=== PATIENT | female | born 1945 | race Caucasian/White ===

== ENCOUNTER 2019-03-01 00:52 | Inpatient (IN) | payer OTHER ==
[~2019-03-01] VITALS: Ht 170.1 cm; Wt 115.0 kg
[2019-03-01] VITALS (11 sets, daily range): BP systolic 109–135; BP diastolic 38–89
--- NOTE | 2019-03-01 01:26 | NUR ---
SPOKE WITH WHO STATES THE PATIENT DOES SEEM CONFUSED TO HIM AND STATES SHE HAS NOT BEEN EATING. FREDY MARY RN.
--- NOTE | 2019-03-01 01:32 | NUR ---
STATES THE PATIENT WAS AT HOME AND APPROX AROUND THE ORFebruary THE PATIENT FELL AT HOME HITTING HER HEAD. STATES SHE WAS TAKEN TO [facility] AND DISCHARGED HOME FOLLOWED WITH DR NIELSON ON 02/22/19 AND SENT TO [facility] AND DISCHARGED FROM THERE TO [facility] 02/25/19. FREDY RODRIGUEZ RN.
[2019-03-01 01:56] LABS: BASO # 0.1 10*3/uL (0.0-0.1); BASO % 0.5 % (0.0-1.0); EOS # 0.3 10*3/uL (0.0-0.4); EOS % 2.8 % (1.0-4.0); HEMATOCRIT 40.9 % (37.0-47.0); HEMOGLOBIN 13.6 g/dl (12.0-16.0); LYMPH # 1.7 10*3/uL (1.3-4.4); LYMPH % 15.9 % (27.0-41.0); MEAN CELL VOLUME 96.5 fl (81.0-99.0); MEAN CORPUSCULAR HGB 32.1 pg (27.0-31.0); MEAN CORPUSCULAR HGB CONC 33.3 g/dl (33.0-37.0); MEAN PLATELET VOLUME 10.4 fl (9.6-12.3); NEUT # 7.4 10*3/uL (2.3-7.9); NEUT % 70.3 % (47.0-73.0); PLATELET COUNT AUTOMATED 230 10*3/uL (130-400); RED BLOOD COUNT 4.24 10*6/uL (4.10-5.10); RED CELL DISTRI WIDTH 12.8 % (0-14.5); WHITE BLOOD COUNT 10.5 10*3/uL (4.8-10.8)
[2019-03-01 02:14] LABS: ALBUMIN 3.4 gm/dl (3.1-4.5); ALKALINE PHOSPHATASE 81 U/L (45-117); BUN 36 mg/dl (7-24); CHLORIDE 106 mmol/L (98-107); CREATININE 0.95 mg/dL (0.55-1.02); POTASSIUM 3.2 mmol/L (3.5-5.1); SGOT/AST 31 IU/L (3-35); SGPT/ALT 28 U/L (12-78); SODIUM 143 mmol/L (136-145)
[2019-03-01 02:27] LABS: TROPONIN I 0.143 ng/ml (<0.045)
--- NOTE | 2019-03-01 04:06 | NUR ---
NO CHANGE OIN MENTATION AFTER TYHE GLUCOSE. FREDY MARY RN.
[2019-03-01 04:51] LABS: BILIRUBIN 1+ (NEGATIVE); BLOOD NEGATIVE (NEGATIVE); CLARITY CLEAR (CLEAR); COLOR YELLOW (YELLOW); GLUCOSE TRACE (NEGATIVE); KETONE TRACE (NEGATIVE); LEUKO ESTERASE NEGATIVE (NEGATIVE); NITRITE NEGATIVE (NEGATIVE); PH 5.5 (5.0-9.0); SPECIFIC GRAVITY >= 1.030 (1.005-1.030)
[2019-03-01] MEDS ORDERED: 'XANAX0.5 MG PO (04:54)
[2019-03-01] MEDS ORDERED: HUMULIN N100 UNIT/1 SQ ×2 (04:55→05:07)
[2019-03-01] MEDS ORDERED: EFFEXOR XR75 MG PO (04:56)
[2019-03-01] MEDS ORDERED: METOPROLOL SUCC50 M1 PO (04:57)
[2019-03-01] MEDS ORDERED: ASPIRIN EC650 MG PO (04:58)
[2019-03-01 05:00] LABS: BACTERIA TRACE; MUCOUS 2+
[2019-03-01] MEDS ORDERED: FERROUSAL325 MG PO (05:00)
[2019-03-01] MEDS ORDERED: ZESTORETIC 10-1 EACH PO (05:01)
[2019-03-01] MEDS ORDERED: NEURONTIN300 MG PO (05:02)
[2019-03-01] MEDS ORDERED: OMEPRAZOLE40 MG PO (05:04)
[2019-03-01] MEDS ORDERED: VITAMIN D31000 UNI1 PO (05:04)
[2019-03-01] MEDS ORDERED: VITAMIN B-12100 MCG PO (05:05)
[2019-03-01] MEDS ORDERED: ORPHENADRINE C100 M1 PO (05:06)
[2019-03-01] MEDS ORDERED: VENT7GM INH (05:08)
--- NOTE | 2019-03-01 06:45 | NUR ---
AT THIS TIME THE PATIENT IS AWAKE ALERT TO PERSON PLACE AND TIME TALKING WITH HER .FREDY MARY RN.
--- NOTE | 2019-03-01 08:12 | NUR ---
DR FALL'S OFFICE NOTIFIED OF CONSULT.
[2019-03-01] MEDS ORDERED: ASPIR LOW81 MG PO (10:04)
--- NOTE | 2019-03-01 10:38 | NUR ---
[facility], [facility] to , under the services of LUIZA Crawford DO with a diagnosis of CHANGE IN MENTAL STATUS. Chief complaint is BACK PAIN. Patient arrived via bed from ER. Monitor applied. Initial assessment completed. Vital signs taken and recorded. LUIZA CRAWFORD DO notified of admission to the unit. Orders received. See assessment for past medical history, medications and allergies. Patient and/or family oriented to unit. [facility]. Clothing/patient valuable form completed. CRISTAL RIZZO
--- NOTE | 2019-03-01 14:14 | NUR ---
DR. ARAUJO NOTIFIED OF CONSULT.
--- NOTE | 2019-03-01 15:54 | NUR ---
Nursing screen received as well as occupational therapy orders. Will follow up with patient. Thank you. Nunu Lopez, OTR/L
--- NOTE | 2019-03-01 21:36 | NUR ---
NORCO GIVEN PER ORDER FOR PAIN LEFT LEG AND ATIVAN GIVEN FOR ANXIETY. SEE MAR.
[2019-03-02] VITALS: BP 144/50
--- NOTE | 2019-03-02 01:59 | NUR ---
24 HR chart check completed.
[2019-03-02 06:27] LABS: BASO # 0.1 10*3/uL (0.0-0.1); EOS # 0.3 10*3/uL (0.0-0.4); EOS % 4.7 % (1.0-4.0); HEMATOCRIT 40.8 % (37.0-47.0); HEMOGLOBIN 13.3 g/dl (12.0-16.0); LYMPH # 1.1 10*3/uL (1.3-4.4); LYMPH % 15.5 % (27.0-41.0); MEAN CELL VOLUME 98.6 fl (81.0-99.0); MEAN CORPUSCULAR HGB 32.1 pg (27.0-31.0); MEAN CORPUSCULAR HGB CONC 32.6 g/dl (33.0-37.0); MEAN PLATELET VOLUME 10.7 fl (9.6-12.3); MONO # 0.8 10*3/uL (0.1-1.0); MONO % 11.1 % (3.0-9.0); NEUT # 4.8 10*3/uL (2.3-7.9); NEUT % 66.9 % (47.0-73.0); PLATELET COUNT AUTOMATED 195 10*3/uL (130-400); RED BLOOD COUNT 4.14 10*6/uL (4.10-5.10); RED CELL DISTRI WIDTH 12.9 % (0-14.5); WHITE BLOOD COUNT 7.2 10*3/uL (4.8-10.8)
[2019-03-02 07:13] LABS: CHLORIDE 104 mmol/L (98-107); POTASSIUM 3.9 mmol/L (3.5-5.1); SODIUM 142 mmol/L (136-145)
[2019-03-02 07:40] LABS: ALBUMIN 3.3 gm/dl (3.1-4.5); ALKALINE PHOSPHATASE 86 U/L (45-117); BUN 31 mg/dl (7-24); CHOLESTEROL 176 mg/dL (<200); FREE T4 1.11 ng/dl (0.76-1.46); HDL CHOLESTEROL 37 mg/dl (40-60); LDL CHOLESTEROL 115 mg/dL (9-159); SGOT/AST 17 IU/L (3-35); SGPT/ALT 24 U/L (12-78); TOTAL PROTEIN 6.8 gm/dL (6.4-8.2); TRIGLYCERIDES 118 mg/dl (<150); VLDL CHOLESTEROL 24 mg/dL (6-40)
[2019-03-02 07:45] VITALS: BP 138/72
--- NOTE | 2019-03-02 07:45 | NUR ---
PT LAYING IN BED, WAITING TO GO FOR STRESS TEST. NPO. PT COMPLAINED OF LOWER BACK PAIN, RATE 8/10 SHARP. DENIED MEDICATION. REPOSITIONED FOR COMFORT. MAC LANE SPRAJEEVCC
--- NOTE | 2019-03-02 08:15 | NUR ---
PHYSICAL THERAPY Screen and PT eval received will follow Betzy Colin PT
[2019-03-02 08:36] LABS: VITAMIN D, 25-HYDROXY 54.3 ng/mL (30-100)
--- NOTE | 2019-03-02 08:42 | NUR ---
TORITO ROSAS [id number] Please refer to the physician's history and physical for past medical history, comorbid conditions, and allergies. Diagnosis: ENCEPHALOPATHY ACUTE, ELEVATED TROPONIN Jose Score: 17,AT RISK WOUND DESCRIPTIONS: Wound Number: 1 Location of the wound: right proximal elbow Type of wound: scab Thickness: Partial Size: 0.5cm x 1.0cm x <0.1cm Tunneling: none Undermining: none Sinus Tract: none Presence of Exudate: none Amount: None Color: Brown, Red Odor: None Periwound Skin Appearance: Normal Wound edges: approximated Pain (associated with wound): none at time of assessment How does patient state this happened? pt stated this happened prior to coming in Wound Number: 2 Location of the wound: right distal elbow Type of wound: scab Thickness: Partial Size: 0.5cm x 2.0cm x <0.1cm Tunneling: none Undermining: none Sinus Tract: none Presence of Exudate: none Amount: None Color: Brown, Red Odor: None Periwound Skin Appearance: Normal Wound edges: approximated Pain (associated with wound): none at time of assessment How does patient state this happened? pt stated this happened prior to coming in Surface the patient is resting on: Isoflex SKIN PREVENTION RECOMMENDATION: 1. Pressure redistribution support surface as appropriate 2. Elevate heels 3. Remove boots/TEDS every shift and reapply 4. Head of bed 30 degrees as tolerated 5. Assess nutrition and hydration 6. Manage moisture 7. Avoid the use of containment devices while in bed 8. Use absorptive products on surfaces limit layers of linens on bed 9. Turn and reposition every 1-2 hours in bed and every 1 hour in chair as tolerated 10. Weight shifts every 15 minutes while up in chair 11. Offloading with pillows or device to keep heels elevated off bed 12. Monitor skin at least every shift 13. Inspect under medical devices twice a day WOUND TREATMENT RECOMMENDATIONS: Alma Rosa betancourt guidelines: cleanse right proximal elbow, right distal elbow with nss and apply sureprep around the wound therahoney to wound bed and cover with optifoam gentle.
--- NOTE | 2019-03-02 08:46 | NUR ---
Patient comes in from [facility] term [facility]. She requires PT/OT and a precert to return.
--- NOTE | 2019-03-02 09:21 | NUR ---
Dr. Garcia notified of wound care recommentations.
--- NOTE | 2019-03-02 09:26 | NUR ---
TO STRESS TEST VIA W/C WITH TRANSPORT.
--- NOTE | 2019-03-02 10:00 | NUR ---
INFORMED CONSENT OBTAINED FOR LEXISCAN NUCLEAR STRESS TEST WITH DR. FALL. PT IS ALERT AND ORIENTED. RESTING EKG RBBB WITH A RESTING HR OF 77 WITH BP OF 140/82. LUNGS CLEAR WITH SPO2 OF 95% ON ROOM AIR. PT COMPLETED A 1:00 LEXISCAN PROTOCOL RECEIVING LEXISCAN 0.4 MG IV OVER 10 SECONDS. HAD NO CHEST PAIN BUT DID C/O FEELING SHORTNESS OF BREATH THAT WAS RELIEVED IN RECOVERY. EKG NONDIAGNOSTIC. HAD A PEAK HR OF 86 WITH BP OF 128/70. LAST RECOVERY HR OF 89 WITH BP OF 126/74. AWAITING SCANNING IN STABLE CONDITION.
--- NOTE | 2019-03-02 12:10 | NUR ---
Occupational therapy orders received and OT evaluation completed in full on floor four. Patient precautions include fall risk, ww use, L LE NWB, L LE cam boot, weakness. Per OT jose luis, OT recommends a SNF. [place], [address]. Thank you. Nunu Lopez, OTR/L
[2019-03-02 12:20] VITALS: BP 138/68
--- NOTE | 2019-03-02 12:20 | NUR ---
ASSESSMENT COMPLETED AND DOCUMENTED. PT BACK FROM STRESS TEST, ORDERING LUNCH. PT C/O OF LOWER BACK PAIN 09/25 SHARP. PT REQUESTED NORCO. MAC LANE SPRAJEEV[facility]
--- NOTE | 2019-03-02 13:02 | NUR ---
Physical therapy evaluation completed on 4. Full evaluation to follow. Pt's present. Pt was feeling anxious today. Pt returned from stress test shorty prior to arrival. Pt wearing left CAM boot. Observed increased B hand tremors with increased anxiety, mostly when pt was asked to get up. Pt did sit OOB with assist. Pt attempted to stand with MAX A x 2 for a very short time. Pt able to stand for PT assessment but not functional and required 2 person assist. Continue PT for strength, transfers, gait, balance, safety, education. Pt to continue NWB LLE. Moderate complexity PT eval. Thank you for this referral, Fawn Montenegro, PT
--- NOTE | 2019-03-02 13:38 | NUR ---
PT HAS VISTOR AT BEDSIDE. NO COMPLAINTS AT THIS TIME. REPORT GIVEN TO CRISTAL. MAC LANE SPCC
[2019-03-02 16:00] VITALS: BP 138/63
[2019-03-02 20:00] VITALS: BP 141/43
[2019-03-03 00:03] VITALS: BP 152/44
--- NOTE | 2019-03-03 04:43 | NUR ---
Upon discharge recommend patient to follow up for wound care in outpatient setting continue current wound care orders at discharging facility
--- NOTE | 2019-03-03 04:55 | NUR ---
24 HR chart check completed.
--- NOTE | 2019-03-03 06:30 | NUR ---
REFUSED TO USE SLIDING SCALE FOR BLOOD SUGAR COVERAGE. ONLY WANTS HUMULIN N 45 UNITS.
--- NOTE | 2019-03-03 07:03 | NUR ---
updated clinicals faxed to [facility] and asked to start precert for return. waiting on auth
[2019-03-03 08:00] VITALS: BP 156/56
--- NOTE | 2019-03-03 08:30 | NUR ---
PHYSICAL THERAPY Patient seen this am 1;1 for therapy visit and was supine in bed upon therapist arrival. Patient identified by name / and reports no c/o's pain at this time since taking recent pain Meds. OT automotive parts counter assistant was also present for observation only as patient transfers supine to sit EOB with MOD A. Patient is NWB on L LE, with use of CAM boot support. Patient needed therapist assist with Donning CAM boot this morning and was able to perform several sit to stand transfers at bedside, requiring multiple v/c's to improve transfer technique, including maintaining NWB status. Patient instructed on, then completed SPT to bedside chair, use of wh walker standing support, MOD A x 2, demonstrating very unsteady standing balance, POOR walker safety during piviot phase of transfer. Patient only 50% compliant with NWB status this session and remained in bedside chair with call light, tray table, telephone and body alarm. Will continue per POC as tolerated, total treatment time 16 minutes. Kody Louie, TOWBOAT OPERATOR
--- NOTE | 2019-03-03 08:42 | NUR ---
OT NOTE Pt was seen this A.M. 1:1 for 20 minute OT session. Upon arrival pt was supine in bed. Pt identified by name and and had complaints of 1/10 low back pain. Pt presented to therapy with NWB status to LLE and was supine in bed with no boot on. Cam boot was donned with maxA. Pt then transferred supine to sit EOB with Lucho for assist with UB. Pt was educated on NWB status to LLE and with visual instructions pt was educated on transfers, pt verbalized understanding. Pt completed multiple sit to stand transfers from bed level with modA X 2 and use of w/w for UE support. Challenged pt's static standing tolerance needed for increased I in self care tasks and functional transfers. Pt was able to tolerate aprox 2 minutes before sitting due to fatigue. Throughout pt was aprox 50% compliant with non weight bearing status. Pt then completed standing pivot from the EOB to the recliner with modA X 2 and use of w/w for UE support. Pt continued to perform with aprox 50% compliance with NWB to LLE. Pt was left sitting upright in the recliner with call light in hand, tray table in place, and body alarm activated for safety. Continue with rec D/C plan to SNF. DAVID Gramajo/Mulugeta
[2019-03-03 12:00] VITALS: BP 132/54
[2019-03-03 15:03] VITALS: BP 135/53
[2019-03-03 20:00] VITALS: BP 150/53
--- NOTE | 2019-03-03 20:51 | NUR ---
24 HR chart check completed.
--- NOTE | 2019-03-03 21:40 | NUR ---
PATIENT REFUSED TO HAVE REGULAR INSULIN SLIDING SCALE ONLY WANTED HER 50 UNITS OF NPH.
[2019-03-04] VITALS: BP 141/56
[2019-03-04 08:00] VITALS: BP 150/66
--- NOTE | 2019-03-04 08:30 | NUR ---
PHYSICAL THERAPY Patient seen this am 1:1 for therapy visit and was supine in bed upon therapist arrival. Patient identified by name / and voices 3/10 low back pain. Patient is NWB on L LE with use CAM boot for support for all standing activities and transfers supine to sit EOB with MOD A. Patient tolerates static EOB sit x 4 minutes, SBA and received instruction on safe SPT while maintaining NWB status. Patient performed several sit to stand transfers with use of wh walker standing support, MIN A, needing v/c to improve NWB compliance on L LE. Patient demonstrated non compliance with slow rise during transfer and again during SPT to bedside chair. Patient was 75% compliant during static stand once fully upright, but quickly becomes non compliant secondary to increased fatigue / muscle weakness. Patient remained in bedside chair with call light, tray table, telphone and body alarm for safety. Will continue per POC as tolerated, total treatment time 16 minutes. Kody Louie, SOLE RUFFER
--- NOTE | 2019-03-04 08:56 | NUR ---
OT NOTE PATIENT SEEN 1:1 OT THIS DATE 25 MINUTES. PATIENT IDENTIFIED BY NAME AND DATE OF THIS DATE. PATIENT IN BED UPON ARRRIVAL. COMPLETED SUPINE TO SIT EOB MIN A VERBAL CUES USE RAIL FOR INCREASE INDEPENDENCE. PATIENT DENIES PAIN AT REST. PATIENT COMPLETED UB BATHING/DRESSING MIN A SEATED EOB WITH MIN VERBAL CUES SEQUENCING TASK. PATIENT COMPLETED LB DRESSING/BATHING MAX A WITH PATIENT DEMONSTRATING NON COMPLIANCE NON WEIGHT BEARING STATUS LLE WITH WEAR OF LEFT ORTHO BOOT STANDING. COMPLETED STAND PIVOT TRANSFER MIN A BED TO RECLINER WITH USE FWW WITH PATIENT NON COMPLIANT NWB STATUS LLE WITH EDUCAITON COMPLETED. PATIENT SEATED IN RECLINER END OF SESSION THIS DATE WITH CALL LIGHT AND CHAIR ALARM INTACT. CONTINUE TOWARDS PLAN OF CARE.PATIENT REPORTS 7/10 PAIN AFTER SESSION LLE. TODD JACOB
--- NOTE | 2019-03-04 09:40 | NUR ---
Updates and PT/OT notes faxed to [facility] to continue precert. waiting on auth.
[2019-03-04 12:00] VITALS: BP 131/74
--- NOTE | 2019-03-04 14:55 | NUR ---
PHYSICAL THERAPY CO-SIGN I approve of the Physical Therapy notes written above. Betzy Colin PT
--- NOTE | 2019-03-04 14:58 | NUR ---
OCCUPATIONAL THERAPY CO-SIGN I approve of the Occupational Therapy notes written above. Nunu Lopez, OTR/L
[2019-03-04 16:00] VITALS: BP 121/45
--- NOTE | 2019-03-04 16:50 | NUR ---
PT REFUSED 16:30 BEDSIDE GLUCOSE.
--- NOTE | 2019-03-04 19:20 | NUR ---
IN TO SEE PT. ASSESSMENT COMPLETE. PT HAS NO COMPLAINTS AT THIS TIME AND STATES SHE DOES NOT NEED ANYTHING AT THE MOMENT. RESPIRATIONS EASY AND REGULAR. CALL LIGHT WITHIN REACH. WILL CONTINUE TO MONITOR.
--- NOTE | 2019-03-04 19:35 | NUR ---
24 HR chart check completed.
[2019-03-04 20:00] VITALS: BP 135/52
--- NOTE | 2019-03-04 20:14 | NUR ---
PT CO BACK PAIN RATED AN 8/10. MEDICATED WITH PRN TYLENOL. WILL CHECK EFFECTIVENESS. CALL LIGHT IN REACH.
--- NOTE | 2019-03-04 21:15 | NUR ---
PT STATES TYLENOL WAS EFFECTIVE. WILL CONTINUE TO MONITOR.
--- NOTE | 2019-03-04 22:04 | NUR ---
REFUSED TO USE HUMALOG SLIDING SCALE. ONLY WANTS HUMULIN N 50 UNITS ORDERED.
[2019-03-05] VITALS: BP 148/61
[2019-03-05 04:35] LABS: BILIRUBIN NEGATIVE (NEGATIVE); BLOOD NEGATIVE (NEGATIVE); CLARITY SL CLOUDY (CLEAR); COLOR YELLOW (YELLOW); GLUCOSE TRACE (NEGATIVE); KETONE NEGATIVE (NEGATIVE); LEUKO ESTERASE NEGATIVE (NEGATIVE); NITRITE NEGATIVE (NEGATIVE); PH 5.5 (5.0-9.0); SPECIFIC GRAVITY >= 1.030 (1.005-1.030); UROBILINOGEN 0.2 E.U./dl (0.2-1.0)
[2019-03-05 05:15] LABS: CALCIUM OXALATE CRYSTALS 1+; EPITHELIAL CELLS 20-25
[2019-03-05 05:16] LABS: WBC 0-2 wbc/hpf (0-5)
[2019-03-05 08:00] VITALS: BP 129/60
[2019-03-05] MEDS ORDERED: NEURONTIN300 MG PO (09:12)
[2019-03-05] MEDS ORDERED: 'XANAX0.5 MG PO (09:12)
[2019-03-05] MEDS ORDERED: NORCO 5-325 TA1 EACH PO (11:27)
--- NOTE | 2019-03-05 11:33 | NUR ---
PT REFUSING 11:30 BEDSIDE GLUCOSE.
[2019-03-05 12:00] VITALS: BP 118/45
--- NOTE | 2019-03-05 12:00 | NUR ---
NORCO GIVEN FOR C/P LT LEG PAIN. RATES 7/10 ON PAIN SCALE. WILL MONITOR.
--- NOTE | 2019-03-05 12:02 | NUR ---
NORCO GIVEN FOR C/O LEFT LEG PAIN. RATES 7/10 ON PAIN SCALE. WILL MONITOR.
--- NOTE | 2019-03-05 12:54 | NUR ---
PHYSICAL THERAPY Patient seen this PM for her therapy session, supine in bed at time of arrival. Patient provided informed consent for treatment. Patient states she had cast applied to (L) LE last night and was not up for sitting at side of bed this date; although patient asked POULTRY HATCHERY LABORER to educate her on exercises to perform while she was in bed. Patient performed supine B LE ther-ex, AROM, in order to increase LE strength, endurance and ROM needed to perform all functional mobility- quad sets (5 sec holds), ankle PF/DF (R) LE only, SLR, hip ABD/ADD, heel slides, glute sets x 15 reps. Intermittent rest breaks provided, due to fatigue and SOB-- patient educated on proper breathing techniques. Pt benefits from tactile/verbal cues for improved ROM, technique and progression of exercises. Patient re-positioned in bed requiring maxAx2 for scooting HOB. Pt supine in bed with call light and tray table within reach. Patient voiced no c/o and/or pain post session. Robyn Riddle, POULTRY HATCHERY LABORER
--- NOTE | 2019-03-05 13:42 | NUR ---
[facility] Discharge instructions reviewed with patient/family. Patient receptive and verbalizes understanding. Follow-up care arranged. Written instructions given to patient/family. CRISTAL RIZZO
== END 2019-03-05 13:42 | disposition other institution (70) | DRG 70 ==
LOC: ED 00:52 → EDHOLD 06:26 → 4E 06:26
PROVIDERS: Emergency Medicine; Internal Medicine; Registered Nurse; ADMIT Internal Medicine
DX: G93.41 Metabolic encephalopathy (principal); J96.01 Acute respiratory failure with hypoxia; R79.89 Other specified abnormal findings of blood chemistry; R29.6 Repeated falls; R00.1 Bradycardia, unspecified; E87.6 Hypokalemia; E78.5 Hyperlipidemia, unspecified; E11.40 Type 2 diabetes mellitus with diabetic neuropathy, unspecified; I50.9 Heart failure, unspecified; K21.9 Gastro-esophageal reflux disease without esophagitis; I48.91 Unspecified atrial fibrillation; M81.0 Age-related osteoporosis without current pathological fracture; Z96.659 Presence of unspecified artificial knee joint; S82.432A Displaced oblique fracture of shaft of left fibula, initial encounter for closed fracture; I11.0 Hypertensive heart disease with heart failure; G35 Multiple sclerosis; F41.9 Anxiety disorder, unspecified; Z53.29 Procedure and treatment not carried out because of patient's decision for other reasons; E11.649 Type 2 diabetes mellitus with hypoglycemia without coma; E11.65 Type 2 diabetes mellitus with hyperglycemia; S82.892A Other fracture of left lower leg, initial encounter for closed fracture; W18.30XA Fall on same level, unspecified, initial encounter; Y93.89 Activity, other specified; Y92.89 Other specified places as the place of occurrence of the external cause; Y99.8 Other external cause status; Z79.4 Long term (current) use of insulin; Z88.1 Allergy status to other antibiotic agents; Z88.8 Allergy status to other drugs, medicaments and biological substances; Z90.49 Acquired absence of other specified parts of digestive tract; Z90.12 Acquired absence of left breast and nipple; Z90.710 Acquired absence of both cervix and uterus; Z92.3 Personal history of irradiation; Z82.49 Family history of ischemic heart disease and other diseases of the circulatory system; Z80.8 Family history of malignant neoplasm of other organs or systems; Z79.82 Long term (current) use of aspirin; Z79.899 Other long term (current) drug therapy